=== PATIENT | female | born 1955 | race Caucasian/White ===

== ENCOUNTER 2017-03-12 18:22 | Observation (INO) | payer OTHER ==
[2017-03-12] MEDS ORDERED: HYDROmorphone 0.5 MG/0.5 ML SYRINGE ONE ×2 (18:53→21:21)
[2017-03-12] MEDS ORDERED: Adacel (T-DAP) 0.5 ML VIAL ONE (18:54)
[2017-03-12] MEDS ORDERED: Clindamycin/D5W 900 mg/50 ml Premix Bag ONE (18:54)
[2017-03-12] MEDS ORDERED: Ketorolac Tromethamine 30 MG/ML VIAL ONE (18:57)
[2017-03-12] MEDS ORDERED: Dextrose 50% Abboject 50 ML SYRINGE SLOW IVP PRN (21:03)
[2017-03-12] MEDS ORDERED: Morphine 4 MG/ML VIAL IV PRN ×2 (21:03)
[2017-03-12] MEDS ORDERED: Dextrose 5% in Water 1,000 ML IV PRN (21:03)
[2017-03-12] MEDS ORDERED: Promethazine HCl 25 MG/ML VIAL IM PRN ×2 (21:03)
[2017-03-12] MEDS ORDERED: Sodium Chloride 0.9% 1,000 ML IV SCH (21:15)
[2017-03-12 21:57] LABS: #Basophils 0.1 thou/uL (0.0-0.2); #Monocytes 0.6 thou/uL (0.11-0.59); #Neutrophils 7.8 thou/uL (1.40-6.50); %Basophils 0.5 % (0.0-1.0); %Eosinophils 0.2 % (0.0-10.0); %Lymphocytes 19.3 % (21.0-51.0); Hematocrit 39.6 % (36.0-47.0); Mean Platelet Volume 6.7 fL (7.4-10.4); White Blood Cell (WBC) Count 10.5 thou/uL (4.8-10.8)
[2017-03-12 22:21] LABS: Anion Gap 10 mmol/L (10-20); BUN (Urea Nitrogen) 21 mg/dL (9.8-20.1); Calc. Creatinine Clearance 0 mL/min (70-130); Calcium 8.9 mg/dL (7.8-10.44); Carbon Dioxide 28 mmol/L (23-31); Chloride 106 mmol/L (98-107); Estimated GFR-MDRD 72
--- NOTE | 2017-03-12 23:43 | HP ---
CHIEF COMPLAINT: Trauma. HISTORY OF PRESENT ILLNESS: Ms. Camara is a 61-year-old woman who was mowing her lawn on a riding mow er when she lost control of the mower and ran it under her wooden deck, striking her shins on the dec k. She did not lose consciousness or injure herself in any other way. She is able to walk and has n ormal movements and sensation distal to her injury. She does not report profuse blood loss at the ne sergio and has not had significant bleeding in the ER, but the ER doctor consulted surgery due to concer ns that it would be difficult to achieve adequate anesthesia to repair these wounds in the ER under l ocal. She has not had anything to eat or drink before noon. PAST MEDICAL HISTORY: Hypertension, mitral regurgitation, aortic insufficiency, hyperlipidemia and h ypothyroid. PAST SURGICAL HISTORY: Includes back surgery, fairly recently, hysterectomy, right rotator cuff, princess ateral carpal tunnel and some surgeries. SOCIAL HISTORY: She drinks a glass of wine every day or every other day. Does not smoke or use any illicit drugs. FAMILY HISTORY: Heart failure in her mother. ALLERGIES: She has an allergy to PENICILLIN. OUTPATIENT MEDICATIONS: Include Ferralet 90 one tablet p.o. daily, estradiol 1 mg p.o. daily, valsar eason/hydrochlorothiazide 160/25 mg 1 tablet p.o. daily, citalopram 20 mg p.o. daily, Synthroid 125 mcg p.o. daily, liothyronine 5 mcg p.o. daily, Dexilant 60 mg p.o. daily, Crestor 40 mg p.o. daily, Paula brex 200 mg p.o. daily, aspirin 81 mg p.o. daily, vitamin D3 complete with iron 1 tab p.o. daily and biotin 1 mg p.o. daily. PHYSICAL EXAMINATION: VITAL SIGNS: The patient is afebrile with normal vital signs. GENERAL: Reveals a healthy appearing woman in no acute distress. HEENT: Unremarkable. Pupils are equal and reactive. Gaze is conjugate. NECK: Supple, without lymphadenopathy or thyroid nodules. She is normocephalic and atraumatic. She does have a slight systolic murmur along the left sternal border. LUNGS: Clear to auscultation bilaterally. HEART: Rate and rhythm are normal. ABDOMEN: Soft, nontender and nondistended. EXTREMITIES: Warm and well perfused. She has normal dorsalis pedis on the right and normal posterio r tibial on the left. She has a large laceration over her left gonzales extending down to the fascia of the muscle, but the muscle does not appear to be involved and the bone is not exposed. She has a sma ll laceration across her right gonzales again with exposed muscle fascia. No obvious foreign bodies, no active bleeding. The wound is dressed with clean saline soaked gauze. NEUROLOGIC: No focal deficit. She has normal movement and sensation of her toes and ankles bilatera lly. PSYCHIATRIC: Alert, oriented and appropriate. LABORATORY DATA: Pending. ASSESSMENT AND PLAN: Soft tissue injury of bilateral shins. I agree with the ER doctor that this wi ll be difficult to adequately anesthetize at the bedside for closure, so I have posted her for the op erating room for washout and closure. Risks of the procedure include bleeding, infection, risks of a nesthesia, infection and need for other procedures. She understands and accepts these risks and wish es to proceed. Antibiotics have been ordered and she has received tetanus prophylaxis and pain medic ation.
[2017-03-13] MEDS ORDERED: Morphine 2 mg/2ml in 0.9% NaCl PF SYRINGE ONE (01:13)
[2017-03-13] MEDS ORDERED: Midazolam HCl 2 mg/2 ml Vial ONE (02:17)
[2017-03-13] MEDS ORDERED: Fentanyl 100 MCG/2 ML VIAL ONE ×3 (02:17→04:48)
[2017-03-13] MEDS ORDERED: Lidocaine 2% PF 10 ML AMP (For Epidural Use) ONE (02:40)
[2017-03-13] MEDS ORDERED: ePHEDrine/0.9% NaCl/PF SYRINGE 50 mg/10 ml ONE (02:40)
[2017-03-13] MEDS ORDERED: Propofol 200 MG/20 ML VIAL ONE (02:40)
[2017-03-13] MEDS ORDERED: Ondansetron HCl/PF 4 MG/2 ML Vial IVP PRN (03:47)
[2017-03-13] MEDS ORDERED: Promethazine HCl 25 MG/ML VIAL SLOW IVP PRN (03:47)
[2017-03-13] MEDS ORDERED: Promethazine HCl 25 MG/ML VIAL IM PRN (03:47)
[2017-03-13] MEDS ORDERED: Meperidine HCl/PF 25 MG/ML VIAL ONE (04:26)
[2017-03-13 04:37] VITALS: BMI 27.2
[2017-03-13] MEDS ORDERED: Fentanyl 100 MCG/2 ML VIAL SLOW IVP SCH (06:00)
[2017-03-13] MEDS ORDERED: Morphine PF 1 MG/ML SYR IV PRN (07:39)
[2017-03-13] MEDS ORDERED: Famotidine/PF 20 mg/2ml Vial SLOW IVP SCH (09:00)
[2017-03-13] MEDS ORDERED: Fluconazole In NaCl,Iso-Osm 100 MG in Admixture Fee 2 EACH IVPB SCH ×2 (09:00)
[2017-03-13] MEDS ORDERED: oxyCODONE/Acetaminophen 5 mg/325 mg Tablet PO PRN (09:05)
--- NOTE | 2017-03-13 09:28 | PRG ---
DATE OF SERVICE: 03/13/2017 SUBJECTIVE: Ms. Camara is doing well today. She is status post debridement of wounds, washout, closu re by Dr. Julien early this morning. This was a lawnmower injury. She received intravenous antibio tics. She is being discharged home without antibiotics. She feels fairly good, she is hungry this m orning. She will be given a regular diet. We will ask physical therapy to see her to assure that enzo tristan is ambulatory and if crutches are necessary, she can go home with crutches, weight bear as tolerate d. We have suggested that she remove her dressings (today is Monday) and wash the wounds wi th soap and water, apply antibiotic ointment, Telfa and rewrapped them. She should elevate her legs periodically during the day. She will be sent home with Percocet p.r.n. pain and transition to Tylen ol, ibuprofen after that. She will follow up in the trauma clinic next week for suture removal. She will call sooner if she has any problems. She has no other complaints today. PHYSICAL EXAMINATION: LUNGS: Clear to auscultation. CARDIAC: Regular rate and rhythm without murmur or gallop. ABDOMEN: Soft, nontender.
[2017-03-13] MEDS ORDERED: Fluconazole 100 MG TAB PO SCH (10:00)
[2017-03-13] MEDS: oxyCODONE/Acetaminophen 5 mg/325 mg Tablet PO PRN ×4 (10:29→22:12)
[2017-03-13] MEDS: Ibuprofen 600 MG TAB PO SCH ×3 (10:29→22:12)
[2017-03-13] MEDS ORDERED: Acetaminophen 1,000 MG in Premix Bag 1 BAG IVPB SCH (12:00)
--- NOTE | 2017-03-13 14:58 | DIS ---
DATE OF ADMISSION: 03/13/2017 DATE OF DISCHARGE: 03/13/2017 DISCHARGE DIAGNOSES: Complex laceration of both lower legs secondary to trauma from a decking ministerio rashmi while mowing the grass. DISCHARGE MEDICATIONS: Percocet 5/325, #28, no refill; [id number] Motrin; and to resume Tyleno l p.o.; and Percocet was discontinued; MiraLax over the counter. Resume home medications aspirin abo ut daily. HISTORY: A 61-year-old female patient mowing the grass, struck a decking injuring her legs, taken to the operating room for washout, closure of complex laceration of lower legs, performed Dr. Wily ruiz the Trauma Service. The patient postoperatively did well and convalesced to work with physical the rapy. We will be discharged home, weightbear as tolerated, possibly with crutches as needed. She is given Percocet 5/325 p.r.n. pain, #28, no refill, and Motrin 600 mg q.i.d. She will apply ice packs today and warm compresses tomorrow. She can remove the dressings on , three days from now a nd wash the wounds with soap and water, shower, and pat dry and place antibiotic ointment, Telfa. Fo llow up with the Trauma Service in about 10 days.
[2017-03-13] MEDS: diphenhydrAMINE 25 MG CAP PO PRN (22:50)
[2017-03-14] MEDS: oxyCODONE/Acetaminophen 5 mg/325 mg Tablet PO PRN ×2 (03:56→10:56)
[2017-03-14] MEDS: Ibuprofen 600 MG TAB PO SCH ×2 (03:57→10:12)
[2017-03-14] MEDS: diphenhydrAMINE 25 MG CAP PO PRN (05:25)
[2017-03-14] MEDS ORDERED: FLU VACC QS2017-18 36 mo. & older 0.5 ML SYRINGE IM ONE (09:00)
[2017-03-14] MEDS ORDERED: Famotidine 20 MG TAB PO SCH (09:00)
[2017-03-14] MEDS ORDERED: Polyethylene Glycol 3350 17 GM Packet PO SCH (09:00)
[2017-03-14 09:10] VITALS: BP 105/65
[2017-03-14 09:13] VITALS: TEMP 98.2
--- NOTE | 2017-03-14 23:42 | DIS ---
DATE OF ADMISSION: 03/13/2017 DATE OF DISCHARGE: 03/14/2017 ADMISSION DIAGNOSES: 1. Acute traumatic pain. 2. Complex laceration in bilateral lower extremities. 3. Status post lawnmower trauma. DISCHARGE DIAGNOSES: 1. Acute traumatic pain. 2. Complex laceration in bilateral lower extremities. 3. Status post lawnmower trauma. CONSULTANTS: None. PROCEDURES: On 03/13/2017, washout and closure of complex leg wounds with Dr. Julien. HOSPITAL COURSE: A 61-year-old female who presented to [facility] [facility] status post trauma while riding a lawnmower. Patient had the above injuries. She was taken for operative closure of her bilateral lower extremity wounds with Dr. Julien. Postoperatively, the patient did well and worked with physi sathya therapy. She was able to mobilize. Her pain was controlled with p.o. analgesics. She is tolera ting a general diet. On the date of discharge, the wounds were evaluated by Dr. Julien. DISCHARGE DISPOSITION: Home. DISCHARGE CONDITION: Good. PHYSICAL EXAMINATION: VITAL SIGNS: Temperature 98.3, pulse 74, respiration rate 18, O2 sat 93% on room air, blood pressure 105/65. GENERAL: Well-developed female in no acute distress, resting in bed. PULMONARY: Normal work of breathing. Symmetric rise. CARDIOVASCULAR: Regular rate and rhythm: GASTROINTESTINAL: Abdomen is soft, nontender, nondistended. MUSCULOSKELETAL: Bilateral lower extremity wounds, clean, dry, and intact. Sutures in place. There is no erythema or drainage noted. NEUROLOGIC: No focal deficit noted. DISCHARGE INSTRUCTIONS: The patient should keep her wounds clean and dry. She may wash with soap an d water. She should not scrub the wounds. She needs to follow up with Trauma services in [facility] includes the [facility] 7-10 days for suture removal and wound evaluation. Patient may call our office sooner if problem s develop. She was provided a prescription for Percocet 5/325 #28 with no refills. Once this medica tion resumes, she should resume Tylenol p.o. In the meantime, she may take [id number] Motrin a nd MiraLax over the counter. She should also resume her home medications. This is merely a summary of the patient's hospitalization. For more in depth information, please see her medical record in it s entirety.
--- NOTE | 2017-03-15 13:18 | OP ---
DATE OF SURGERY: 03/13/2017 SURGEON: Yazmin Julien M.D. PREOPERATIVE DIAGNOSIS: Soft tissue injuries to bilateral lower extremities. POSTOPERATIVE DIAGNOSIS: Soft tissue injuries to bilateral lower extremities. HISTORY: Ms. Camara is a 61-year-old woman who lost control of her riding lawnmower and ran into her wood port. She has V-shape lacerations to both shins down to the muscle, but there is no exposed bon e. The lacerations are too long to adequately wash out and repair in the emergency room, so recommen dation was made to proceed with washout and repair in the operating room. DESCRIPTION OF PROCEDURE: After informed consent was obtained and appropriate preoperative antibioti cs continued, the patient was taken to the operating room where she was placed in the supine position and anesthesia was administered. She was prepped and draped in the standard sterile fashion with a Betadine prep to bilateral lower extremities. The wounds were carefully examined. These represented degloving type injuries superiorly where the soft tissues were from the underlying tissues . On the right side, there was about 5-6 cm of undermining superiorly, but on the left side, this ex tended 10-12 cm from the skin edges superiorly especially along the medial edge. The wounds were copying machine mechanic iously irrigated and examined for hemostasis which was obtained using Bovie electrocautery. She was carefully examined for evidence of foreign bodies or wood within the wound by palpation and inspectio n and no foreign bodies were found. The wounds were again copiously irrigated and then closed in lay ers with interrupted absorbable subcutaneous sutures and interrupted vertical mattress nylon sutures. Any nonviable skin was sharply debrided back to bleeding viable appearing skin and the wounds were able to be closed without undue tension. The wounds were then dressed with bacitracin, gauze and Arnoldo wraps and the patient was extubated and taken to recovery in good condition. Estimated blood loss w as minimal. There were no complications. There were no specimens. FINDINGS: Degloving type injuries to bilateral lower extremities with lacerations measuring 8 cm on the right and 15 cm on the left.
== END 2017-03-14 11:15 | disposition home or self-care (01) ==
LOC: ERS 18:22 → SURG B 03-13 01:54 → ERS 03-13 01:54 → SDC/OP 03-13 03:44 → SURG B 03-13 03:46
PROVIDERS: ADMIT Surgery; ATTEND Surgery
PROC: 0JQP0ZZ Repair Left Lower Leg Subcutaneous Tissue and Fascia, Open Approach (ICD-10-PCS; principal; 2017-03-14)
PROC: 0JQN0ZZ Repair Right Lower Leg Subcutaneous Tissue and Fascia, Open Approach (ICD-10-PCS; 2017-03-14)
DX: S81.811A Laceration without foreign body, right lower leg, initial encounter (principal); S81.812A Laceration without foreign body, left lower leg, initial encounter; G89.11 Acute pain due to trauma; I10 Essential (primary) hypertension; I34.0 Nonrheumatic mitral (valve) insufficiency; I35.1 Nonrheumatic aortic (valve) insufficiency; E78.5 Hyperlipidemia, unspecified; E03.9 Hypothyroidism, unspecified; Z88.0 Allergy status to penicillin; Z79.82 Long term (current) use of aspirin; Z79.890 Hormone replacement therapy; Z79.899 Other long term (current) drug therapy; Z90.710 Acquired absence of both cervix and uterus; Z98.890 Other specified postprocedural states; W22.8XXA Striking against or struck by other objects, initial encounter; Y93.H2 Activity, gardening and landscaping
CPT/HCPCS: 36415; 80048; 83880; 85025; 90471; 90682; 90715; 96361; 96365; 96375; 96376; A4216; G0008; G0378; G0390; G8978-GP-CI; G8979-GP-CI; J0131; J1170; J1885; J2001; J2175; J2250; J2270; J2274; J2704; J3010; J3490; Q2036